=== PATIENT | female | born 1955 | race Two or more races ===

== ENCOUNTER 2022-03-12 14:11 | Emergency (ER) | payer MEDICARE, MEDICAID ==
[~2022-03-12] VITALS: Ht 160 cm; Wt 82.0 kg
[2022-03-12] MEDS ORDERED: ACETAMINOPHEN WITH CODEINE 300/30MG TABLET PO ONE (15:15)
[2022-03-12 15:26] VITALS: BP 134/96
[2022-03-12] MEDS ORDERED: LIDO1ADH23 TP (17:12)
[2022-03-12] MEDS ORDERED: T3 PO (17:12)
== END 2022-03-12 17:30 | disposition home or self-care (01) ==
LOC: ER 14:47
DX: M25.562 Pain in left knee (principal); I10 Essential (primary) hypertension
CPT/HCPCS: 71101; 73562; 99284

== ENCOUNTER 2022-10-05 08:22 | Emergency (ER) | payer OTHER, MEDICAID ==
[~2022-10-05] VITALS: Ht 160 cm; Wt 81.8 kg
[~2022-10-05 08:22] MED LIST: LIDO1ADH23 TP; T3 PO
[2022-10-05 09:02] LABS: CLARITY URINE CLEAR (CLEAR); COLOR URINE YELLOW (YELLOW); KETONES URINE NEGATIVE (NEGATIVE); LEUKOCYTE ESTERASE URINE 3+ (NEGATIVE); NITRITE URINE NEGATIVE (NEGATIVE); OCCULT BLOOD URINE 1+ (NEGATIVE); PH URINE 5.5 (4.5-8.0); PROTEIN URINE NEGATIVE (NEGATIVE); SPECIFIC GRAVITY URINE 1.007 (1.005-1.030); UROBILINOGEN URINE 0.2 E.U./dL (0.2-1.0)
[2022-10-05] MEDS ORDERED: IBUP-2029 MT (09:40)
[2022-10-05] MEDS ORDERED: CEPH500T MT (09:40)
[2022-10-05] MEDS ORDERED: IBUPROFEN 600MG TABLET PO ONE (09:45)
[2022-10-05 09:57] VITALS: BP 141/88
== END 2022-10-05 10:02 | disposition home or self-care (01) ==
LOC: ER 08:22
DX: N64.4 Mastodynia (principal)
CPT/HCPCS: 81003; 99283

== ENCOUNTER 2023-10-08 09:45 | Emergency (ER) | payer BC, MEDICAID ==
[~2023-10-08] VITALS: Ht 160 cm; Wt 82.0 kg
[~2023-10-08 09:45] MED LIST changes: +CEPH500T MT; +IBUP-2029 MT
[2023-10-08 10:06] VITALS: PULSE 77; O2SAT 99
[2023-10-08 11:11] LABS: CLARITY URINE CLEAR (CLEAR); COLOR URINE YELLOW (YELLOW); GLUCOSE URINE NEGATIVE (NEGATIVE); KETONES URINE NEGATIVE (NEGATIVE); LEUKOCYTE ESTERASE URINE 2+ (NEGATIVE); NITRITE URINE NEGATIVE (NEGATIVE); OCCULT BLOOD URINE TRACE (NEGATIVE); PROTEIN URINE NEGATIVE (NEGATIVE); SPECIFIC GRAVITY URINE 1.007 (1.005-1.030); UROBILINOGEN URINE 0.2 E.U./dL (0.2-1.0)
[2023-10-08 11:31] VITALS: BP 140/71; RESP 16; TEMP 98.9
[2023-10-08] MEDS: ACETAMINOPHEN 325MG TABLET PO ONE (11:31)
[2023-10-08] MEDS: LIDOCAINE 5% PATCH TOP SCH (11:31)
[2023-10-08 12:09] LABS: SQUAMOUS EPITHELIAL CELL URINE 1+ /lpf (RARE/1+)
[2023-10-08 12:10] LABS: BACTERIA URINE TRACE; RBC URINE 0-2 /hpf (0-2); YEAST URINE NONE SEEN
[2023-10-08] MEDS ORDERED: LIDO700A15 TP (12:29)
[2023-10-08] MEDS ORDERED: TOPUD MT (12:29)
[2023-10-08] MEDS ORDERED: CEPH500C2 MT (12:31)
== END 2023-10-08 12:42 | disposition home or self-care (01) ==
LOC: ER 09:45
DX: M43.00 Spondylolysis, site unspecified (principal); I10 Essential (primary) hypertension; N39.0 Urinary tract infection, site not specified
CPT/HCPCS: 72070; 81003; 99284

== ENCOUNTER 2023-12-24 18:24 | Emergency (ER) | payer BC, MEDICAID ==
[~2023-12-24] VITALS: Ht 165.1 cm; Wt 84.0 kg
[~2023-12-24 18:24] MED LIST changes: +CEPH500C2 MT; +LIDO700A15 TP; +TOPUD MT
[2023-12-24 18:33] VITALS: O2SAT 100
[2023-12-24 21:23] LABS: CLARITY URINE CLEAR (CLEAR); COLOR URINE YELLOW (YELLOW); GLUCOSE URINE NEGATIVE (NEGATIVE); KETONES URINE NEGATIVE (NEGATIVE); LEUKOCYTE ESTERASE URINE 3+ (NEGATIVE); NITRITE URINE NEGATIVE (NEGATIVE); OCCULT BLOOD URINE 1+ (NEGATIVE); PROTEIN URINE NEGATIVE (NEGATIVE); SPECIFIC GRAVITY URINE 1.011 (1.005-1.030); UROBILINOGEN URINE 0.2 E.U./dL (0.2-1.0)
[2023-12-24] MEDS: IBUPROFEN 600MG TABLET PO STA (21:38)
[2023-12-24 21:40] LABS: BACTERIA URINE 1+; SQUAMOUS EPITHELIAL CELL URINE FEW /lpf (RARE/1+)
[2023-12-24 22:18] LABS: BASOPHILS % 0.6 % (0.0-2.0); HEMATOCRIT. 44.3 % (36.0-48.0); HEMOGLOBIN. 15.2 g/dL (12.0-16.0); LYMPHOCYTES % 23.3 % (20.0-50.0); MEAN CORPUSCULAR HEMOGLOBIN 30.3 pg (28.0-32.0); MEAN CORPUSCULAR HGB CONC 34.2 g/dL (31.0-37.0); MEAN CORPUSCULAR VOLUME 88.5 fL (81.0-99.0); MEAN PLATELET VOLUME 8.3 fl (7.4-10.4); NEUTROPHILS % 67.1 % (40.0-76.0); PLATELET 245 x1000/uL (130-400); RED BLOOD CELL COUNT 5.01 mill/uL (4.2-5.4); RED CELL DISTRIBUTION WIDTH 13.9 % (11.6-14.6); WHITE BLOOD COUNT 10.1 x1000/uL (4.5-11.0)
[2023-12-24 22:24] LABS: CHLORIDE 107 mEq/L (98-107); SODIUM 139 mEq/L (136-145)
[2023-12-24 22:25] LABS: CALCIUM 9.9 mg/dL (8.7-10.4); CARBON DIOXIDE 25 mEq/L (21-32)
[2023-12-24 22:30] LABS: CREATININE 0.7 mg/dL (0.6-1.0); GLUCOSE 106 mg/dL (70-105); UREA NITROGEN BLOOD 9 mg/dL (9-23)
[2023-12-24] MEDS: CEPHALEXIN 250MG CAPSULE PO NR (23:30)
[2023-12-25] MEDS ORDERED: CEPH500T MT (00:16)
[2023-12-25 00:40] VITALS: BP 125/67; PULSE 109; RESP 20; TEMP 98.8
== END 2023-12-25 00:46 | disposition home or self-care (01) ==
LOC: ER 18:24
DX: N39.0 Urinary tract infection, site not specified (principal); I10 Essential (primary) hypertension
CPT/HCPCS: 36415; 74176; 80048; 81003; 85025; 99284

== ENCOUNTER 2024-01-30 14:45 | Emergency (ER) | payer BC, MEDICAID ==
[~2024-01-30] VITALS: Ht 167.6 cm; Wt 81.0 kg
[2024-01-30 15:06] VITALS: TEMP 97.7; O2SAT 95
[2024-01-30 15:34] LABS: BASOPHILS % 0.5 % (0.0-2.0); EOSINOPHILS % 0.6 % (0.0-5.0); HEMATOCRIT. 44.4 % (36.0-48.0); HEMOGLOBIN. 14.9 g/dL (12.0-16.0); LYMPHOCYTES % 16.3 % (20.0-50.0); MEAN CORPUSCULAR HEMOGLOBIN 29.9 pg (28.0-32.0); MEAN CORPUSCULAR HGB CONC 33.6 g/dL (31.0-37.0); MEAN PLATELET VOLUME 8.2 fl (7.4-10.4); MONOCYTES % 6.9 % (2.0-8.0); NEUTROPHILS % 75.7 % (40.0-76.0); PLATELET 265 x1000/uL (130-400); RED BLOOD CELL COUNT 4.98 mill/uL (4.2-5.4); RED CELL DISTRIBUTION WIDTH 14.2 % (11.6-14.6); WHITE BLOOD COUNT 9.8 x1000/uL (4.5-11.0)
[2024-01-30 15:39] LABS: CARBON DIOXIDE 24 mEq/L (21-32); CHLORIDE 108 mEq/L (98-107); SODIUM 138 mEq/L (136-145)
[2024-01-30 15:44] LABS: CREATININE 0.7 mg/dL (0.6-1.0)
[2024-01-30 15:45] LABS: GLUCOSE 130 mg/dL (70-105); UREA NITROGEN BLOOD 11 mg/dL (9-23)
[2024-01-30 15:46] LABS: ALANINE AMINOTRANSFERASE 21 IU/L (10-49); ALBUMIN 4.8 g/dL (3.2-4.8); ASPARTATE AMINOTRANSFERASE 22 IU/L (<34)
[2024-01-30 15:47] LABS: BILIRUBIN DIRECT 0.1 mg/dL (<=3.0); BILIRUBIN TOTAL 0.5 mg/dL (0.1-1.0); PROTEIN TOTAL 7.5 g/dL (6.0-8.3)
[2024-01-30 15:48] LABS: TROPONIN I HIGH SENSITIVITY < 4 ng/L (3.0-34)
[2024-01-30 17:10] LABS: CLARITY URINE CLEAR (CLEAR); COLOR URINE YELLOW (YELLOW); GLUCOSE URINE NEGATIVE (NEGATIVE); KETONES URINE NEGATIVE (NEGATIVE); LEUKOCYTE ESTERASE URINE 3+ (NEGATIVE); NITRITE URINE NEGATIVE (NEGATIVE); OCCULT BLOOD URINE 1+ (NEGATIVE); PH URINE 5.5 (4.5-8.0); PROTEIN URINE NEGATIVE (NEGATIVE); SPECIFIC GRAVITY URINE 1.009 (1.005-1.030); UROBILINOGEN URINE 0.2 E.U./dL (0.2-1.0)
[2024-01-30] MEDS ORDERED: NITR-87 MT (17:35)
[2024-01-30] MEDS ORDERED: OMEP20CA14 MT (17:35)
[2024-01-30 17:42] VITALS: BP 159/86; PULSE 88; RESP 13
[2024-01-30 18:02] LABS: BACTERIA URINE TRACE; SQUAMOUS EPITHELIAL CELL URINE 1+ /lpf (RARE/1+)
== END 2024-01-30 17:44 | disposition home or self-care (01) ==
LOC: ER 14:45
DX: N39.0 Urinary tract infection, site not specified (principal); I10 Essential (primary) hypertension; Z79.899 Other long term (current) drug therapy
CPT/HCPCS: 36415; 80048; 80076; 81003; 84484; 85025; 93005; 99284

== ENCOUNTER 2024-02-13 11:19 | Emergency (ER) | payer BC, MEDICAID ==
[~2024-02-13] VITALS: Ht 160 cm; Wt 82.0 kg
[~2024-02-13 11:19] MED LIST changes: +NITR-87 MT; +OMEP20CA14 MT
[2024-02-13 11:35] VITALS: O2SAT 100
[2024-02-13 12:04] LABS: BASOPHILS % 0.6 % (0.0-2.0); EOSINOPHILS % 0.3 % (0.0-5.0); HEMOGLOBIN. 14.9 g/dL (12.0-16.0); LYMPHOCYTES % 12.2 % (20.0-50.0); MEAN CORPUSCULAR HEMOGLOBIN 29.3 pg (28.0-32.0); MEAN CORPUSCULAR HGB CONC 33.1 g/dL (31.0-37.0); MEAN CORPUSCULAR VOLUME 88.7 fL (81.0-99.0); MEAN PLATELET VOLUME 8.2 fl (7.4-10.4); MONOCYTES % 6.8 % (2.0-8.0); NEUTROPHILS % 80.1 % (40.0-76.0); PLATELET 272 x1000/uL (130-400); RED BLOOD CELL COUNT 5.07 mill/uL (4.2-5.4); RED CELL DISTRIBUTION WIDTH 14.1 % (11.6-14.6); WHITE BLOOD COUNT 9.4 x1000/uL (4.5-11.0)
[2024-02-13 12:10] LABS: CHLORIDE 109 mEq/L (98-107); POTASSIUM 3.7 mEq/L (3.5-5.1); SODIUM 138 mEq/L (136-145)
[2024-02-13 12:11] LABS: CALCIUM 10.2 mg/dL (8.7-10.4); CARBON DIOXIDE 24 mEq/L (21-32)
[2024-02-13 12:16] LABS: CREATININE 0.9 mg/dL (0.6-1.0); GLUCOSE 136 mg/dL (70-105); UREA NITROGEN BLOOD 12 mg/dL (9-23)
[2024-02-13 12:28] LABS: TROPONIN I HIGH SENSITIVITY < 4 ng/L (3.0-34)
[2024-02-13] MEDS: ACETAMINOPHEN 325MG TABLET PO STA (13:26)
[2024-02-13] MEDS ORDERED: ACET-2708 PO (13:45)
[2024-02-13 13:54] VITALS: BP 145/86; PULSE 101; RESP 16; TEMP 36.78072; O2SAT 100
== END 2024-02-13 14:06 | disposition home or self-care (01) ==
LOC: ER 11:19
DX: M94.0 Chondrocostal junction syndrome [Tietze] (principal); I10 Essential (primary) hypertension; Z79.899 Other long term (current) drug therapy
CPT/HCPCS: 36415; 71045; 80048; 84484; 85025; 93005; 99285